=== PATIENT | female | born 1995 | race Two or more races ===

== ENCOUNTER → 2025-01-09 11:22 | Outpatient (REF) | payer OTHER, SELFPAY ==
[2025-01-09 14:49] LABS: Hepatitis B Surface Antibody Indeterminate
== END ==
LOC: OHS 11:22
PROVIDERS: ATTENDING PHYSICIAN Nurse Practitioner Family
DX: Z23 Encounter for immunization (principal)
CPT/HCPCS: 36415; 86706; 86787

== ENCOUNTER → 2025-05-06 12:24 | Outpatient (REF) | payer OTHER, SELFPAY | LOC: REG 12:24 | PROVIDERS: ATTENDING PHYSICIAN Nurse Practitioner Family | DX: Z23 Encounter for immunization (principal) | CPT/HCPCS: 86706 ==

== ENCOUNTER → 2025-08-05 09:11 | Outpatient (REF) | payer BC, SELFPAY ==
[2025-08-05 10:41] LABS: Hematocrit 36.1 % (37.0-47.0); Hemoglobin 12.3 g/dL (12.0-16.0); Mean Corp Hgb Conc. 34.1 g/dL (33.0-37.0); Mean Corpuscular Volume 90.3 fL (81.0-99.0); Nucleated Red Blood Cells % 0 %; Platelet Count 240 10^3/uL (130-400); Red Cell Dist. Width 12.2 % (11.5-14.5)
[2025-08-05 10:54] LABS: ALT (SGPT) 98 U/L (0-35); AST (SGOT) 451 U/L (14-36); Albumin 4.2 g/dl (3.5-5.0); Alkaline Phosphatase 40 U/L (38-126); Blood Urea Nitrogen 12 mg/dl (7-17); Calcium 9.0 mg/dl (8.4-10.2); Carbon Dioxide 22 mmol/L (22-30); Chloride 109 mmol/L (98-107); Glucose 85 mg/dl (70-99); HDL Cholesterol 91 mg/dl; LDL Cholesterol, Calculated 56 mg/dl; Potassium 4.0 mmol/L (3.5-5.1); Sodium 137 mmol/L (135-145); Total Protein 6.8 g/dl (6.3-8.2); Very Low Density Lipoprotein 13 mg/dl (0-30); eGFR > 60.00
== END ==
LOC: CLAB 09:11
PROVIDERS: ATTENDING PHYSICIAN Internal Medicine
DX: Z00.00 Encounter for general adult medical examination without abnormal findings (principal)
CPT/HCPCS: 36415; 80053; 80061; 85025